=== PATIENT | female | born 1940 | race Caucasian/White ===

== ENCOUNTER 2016-12-19 09:04 | Emergency (ER) | payer MEDICARE ==
[~2016-12-19] VITALS: Ht 162.5 cm; Wt 90.7 kg
[~2016-12-19 09:04] MED LIST: DUEXIS 800-26.1 EACH PO; SYNTHROID0.15 MG PO
[2016-12-19] MEDS ORDERED: MELOXICAM7.5 MG PO (09:23)
[2016-12-19] MEDS ORDERED: LEVOTHYROXIN0.025 M1 PO (09:23)
[2016-12-19] MEDS ORDERED: GLUCOTROL5 MG PO (09:23)
[2016-12-19] MEDS ORDERED: ROPINIROLE HYDRO1 MG PO (09:24)
[2016-12-19] MEDS ORDERED: GABAPENTIN100 M2 PO (09:24)
[2016-12-19 09:29] LABS: BASO # 0.1 10*3/uL (0.0-0.1); EOS # 0.5 10*3/uL (0.0-0.4); EOS % 6.8 % (1.0-4.0); HEMATOCRIT 38.6 % (37.0-47.0); HEMOGLOBIN 12.7 g/dl (12.0-16.0); LYMPH # 1.2 10*3/uL (1.3-4.4); LYMPH % 17.4 % (27.0-41.0); MEAN CORPUSCULAR HGB 33.2 pg (27.0-31.0); MEAN CORPUSCULAR HGB CONC 32.9 g/dl (33.0-37.0); MEAN PLATELET VOLUME 8.7 fl (9.6-12.3); MONO # 0.8 10*3/uL (0.1-1.0); MONO % 10.9 % (3.0-9.0); NEUT # 4.4 10*3/uL (2.3-7.9); NEUT % 63.5 % (47.0-73.0); PLATELET COUNT AUTOMATED 189 10*3/uL (130-400); RED BLOOD COUNT 3.82 10*6/uL (4.10-5.10); WHITE BLOOD COUNT 6.9 10*3/uL (4.8-10.8)
[2016-12-19 09:47] LABS: ALBUMIN 3.2 gm/dl (3.1-4.5); BILIRUBIN, TOTAL 0.4 mg/dl (0.2-1.0); POTASSIUM 4.6 mmol/L (3.5-5.1); TOTAL PROTEIN 6.7 gm/dL (6.4-8.2)
[2016-12-19 09:48] LABS: TROPONIN I 0.026 ng/ml (<0.045)
[2016-12-19] MEDS ORDERED: NAPROSYN500 MG PO (11:11)
== END 2016-12-19 12:13 | disposition home or self-care (01) ==
LOC: ED 09:04
PROVIDERS: Nurse Practitioner Family
DX: T14.8 Other injury of unspecified body region (principal); F10.129 Alcohol abuse with intoxication, unspecified; R03.0 Elevated blood-pressure reading, without diagnosis of hypertension; Z79.899 Other long term (current) drug therapy; W18.39XA Other fall on same level, initial encounter; Y93.89 Activity, other specified; Y92.89 Other specified places as the place of occurrence of the external cause; Y99.9 Unspecified external cause status